=== PATIENT | female | born 1995 | race African-American/Black ===

== ENCOUNTER 2016-11-01 14:18 | Emergency (ER) | payer OTHER | END 2016-11-01 15:29 | disposition home or self-care (01) | LOC: CFTX 14:18 → CED 14:18 → CFTX 15:00 | DX: L02.413 Cutaneous abscess of right upper limb (principal); N61.1 Abscess of the breast and nipple; F17.200 Nicotine dependence, unspecified, uncomplicated | CPT/HCPCS: 10060; 99283 ==